=== PATIENT | female | born 1955 | race African-American/Black ===

== ENCOUNTER 2016-12-25 14:11 | Emergency (ER) | payer OTHER ==
[2016-12-25 14:22] VITALS: BP 134/75; BMI 35.7
--- NOTE | 2016-12-25 14:57 | DR.GENAD ---
HPI - HPI Comment HPI Comment: Patient c/o 2 day h/o panic attacks off and on. She has recently seen her PCP, who doubled her anxiety kmeds but hey are not heilping. She had an attack yesterday while traveling and she called 911 after pulling to the side of the road. She has just experience d a 2nd panic attack , while attempting to visit her at the senior care. She c/o heart racing and l arm numbness. She denies chest pain. - Complaint/Symptoms Chief Complaint:: Pain running down left arm with heavy feeling, can't breath - Nurses notes reviewed Nurses Notes Review: Yes - Source History Provided: Patient - Mode of Arrival Mode of Arrival: Wheelchair - Timing Onset of Chief Complaint: 12/23/16 Came on: Suddenly - Duration Duration: Unknown - Severity Severity: Severe - Associated Signs and Symptoms Associated Signs and Symptoms: sweaty palms, facial flushing and heart racing. 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, Other - Family History History of Family Medical Conditions: Yes Family Medical History: Diabetes Mellitus, Hypertension - Social History Does patient currently use any type of tobacco product: Yes Have you used tobacco products in the last 12 months: Yes Type of Tobacco Use: Cigarettes How many years tobacco product used: 45 Does any household member use tobacco: No Alcohol Use: None, Occasionally Do you use any recreational Drugs:: No Lives With: Alone Lives Where: Home - infectious screening In the last 2 months have you had wt loss of >10#?: NO Have you had fever, night sweats or hemotysis?: No Have you traveled outside the country in the last 6 months?: No Isolation: Standard ROS - Review of Systems Constitutional: No Symptoms Reported Respiratoy: Non-Productive Cough, Short of Breath Cardiovascular: Palpitations Gastrointestinal/Abdominal: No Symptoms Reported Genitourinary: No Symptoms Reported Neurological: Paresthesia, Tingling Musculoskeletal: No Symptoms Reported Integumentary: No Symptoms Reported Endocrine: No Symptoms Reported Psychiatric: Anxiety, Depression All Other Systems: Reviewed and Negative PE - Vital Signs Vitals: Temperature 98.5 F Pulse Rate 58 Respiratory Rate 22 Blood Pressure [Left Arm] 154/80 Blood Pressure [Right Arm] 157/90 Blood Pressure 134/75 O2 Sat by Pulse Oximetry 97 - General Limitations: No Limitations General Appearance: Alert, Lethargic - Head Head Exam: Normal Inspection - Neck Neck Exam: Normal Inspection, Full ROM, Trachea Midline - Chest Chest Inspection: Normal Inspection, Symmetric Chest Wall Rise - Respiratory Respiratory Exam: Normal Lung Sounds Bilat Respiratory Exam: Bilateral Clear to Auscultation - Cardiovascular Cardiovascular Exam: Regular Rate, Normal Rhythm, Normal Heart Sounds - Abdominal Exam Abdominal Exam: Normal Inspection, Normal Bowel Sounds - Extremities Extremities Exam: Normal Inspection, Full ROM - Back Back Exam: Normal Inspection - Neurologic Neurological Exam: Alert, Oriented X3, CN II-XII Intact - Psychiatric Psychiatric Exam: Agitated, Anxious - Skin Skin Exam: Warm, Dry, Intact, Normal Color MDM - Differential Diagnosis Differential Diagnosis: panic attack, chest pain, hyperthyroidism Course - Treatment Treatment: ativan - Reevaluation 1st: Improved - Education/Counseling Education/Counseling: Patient Educated On: Treatment, Diagnosis, Prognosis, Needs for Follow Up ROR - Labs Reviewed Laboratory Results Reviewed?: No Result Diagrams: 12/25/16 15:59 12/25/16 15:59 Laboratory: WBC 5.7 X10^3/uL (3.6-10.0) 12/25/16 15:59 RBC 4.50 X10^6/uL (3.5-5.4) 12/25/16 15:59 Hgb 13.4 g/dL (12.0-16.0) 12/25/16 15:59 Hct 39.5 % (36.0-47.0) 12/25/16 15:59 MCV 87.8 fL (80.0-100.0) 12/25/16 15:59 MCH 29.8 pg (27.0-34.0) 12/25/16 15:59 MCHC 33.9 g/dL (33.0-35.0) 12/25/16 15:59 RDW 14.6 % (11.6-16.5) 12/25/16 15:59 Plt Count 216 X10^3/uL (150.0-450.0) 12/25/16 15:59 MPV 7.9 fL (7.4-11.0) 12/25/16 15:59 Neut % 64.9 % (42.0-75.0) 12/25/16 15:59 Lymph % 24.4 % (21.0-51.0) 12/25/16 15:59 [place] % 9.9 % (0.0-13.0) 12/25/16 15:59 Eos % 0.5 % (0.9-2.9) L 12/25/16 15:59 Baso % 0.3 % (0.2-1.0) 12/25/16 15:59 Neut # 3.7 x10^3/uL (2.2-4.8) 12/25/16 15:59 Lymph # 1.4 X10^3/uL (1.3-2.9) 12/25/16 15:59 [place] # 0.6 x10^3/uL (0.3-0.8) 12/25/16 15:59 Eos # 0.0 x10^3/uL (0.0-0.2) 12/25/16 15:59 Baso # 0.0 X10^3/uL (0.0-0.1) 12/25/16 15:59 Absolute Nucleated RBC 0.1 /100WBC 12/25/16 15:59 Sodium 143 mmol/L (136-145) 12/25/16 15:59 Corrected Sodium TNP 12/25/16 15:59 Potassium 3.2 mmol/L (3.5-5.1) L 12/25/16 15:59 Chloride 106 mmol/L (98-107) 12/25/16 15:59 Carbon Dioxide 31.3 mmol/L (21-32) 12/25/16 15:59 BUN 15 mg/dL (7-18) 12/25/16 15:59 Creatinine 0.92 mg/dL (0.55-1.02) 12/25/16 15:59 Est GFR (MDRD) Af Amer > 60 (>60) 12/25/16 15:59 Est GFR (MDRD) Non-Af > 60 (>60) 12/25/16 15:59 Glucose 100 mg/dL (65-99) H 12/25/16 15:59 Calcium 9.2 mg/dL (8.5-10.1) 12/25/16 15:59 Corrected Calcium TNP 12/25/16 15:59 Total Bilirubin 0.40 mg/dL (0.2-1.0) 12/25/16 15:59 AST 20 Units/L (15-37) 12/25/16 15:59 ALT 25 Units/L (12-78) 12/25/16 15:59 Alkaline Phosphatase 80 Units/L (46-116) 12/25/16 15:59 Creatine Kinase 80 Units/L (26-192) 12/25/16 15:59 CK-MB (CK-2) < 1.0 ng/mL (0-4.0) 12/25/16 15:59 CK/CKMB % Calc 1.3 % (<4) 12/25/16 15:59 Troponin I 0.03 ng/mL (0-1.5) 12/25/16 15:59 Total Protein 8.1 g/dL (6.4-8.2) 12/25/16 15:59 Albumin 3.5 g/dL (3.4-5.0) 12/25/16 15:59 Globulin 4.6 g/dL (2.5-4.5) H 12/25/16 15:59 Albumin/Globulin Ratio 0.8 Ratio (1.1-2.1) L 12/25/16 15:59 - Diagnosis Discharge Problem: Heart palpitations, Panic attack, Hypokalemia - Discharge Plan Disposition: 01 HOME, SELF-CARE Condition: Stable - Follow ups/Referrals Follow ups/Referrals: KATE TONEY [Primary Care Provider] - 3 days - Instructions Instructions: Generalized Anxiety Disorder, Panic Attacks, [id number], Panic Attacks, Hypokalemia
[2016-12-25] MEDS ORDERED: ATIVAN INJ 2 MG VIAL IM ONE (15:15)
[2016-12-25] MEDS ORDERED: ATIVAN INJ 2 MG VIAL ONE (15:28)
[2016-12-25 16:07] LABS: BASOPHILS % (AUTO) 0.3 % (0.2-1.0); EOSINOPHILS % (AUTO) 0.5 % (0.9-2.9); HEMATOCRIT 39.5 % (36.0-47.0); HEMOGLOBIN 13.4 g/dL (12.0-16.0); LYMPHOCYTES # (AUTO) 1.4 X10^3/uL (1.3-2.9); LYMPHOCYTES % (AUTO) 24.4 % (21.0-51.0); MEAN CORPUSCULAR HEMOGLOBIN 29.8 pg (27.0-34.0); MEAN CORPUSCULAR HGB CONC 33.9 g/dL (33.0-35.0); MEAN CORPUSCULAR VOLUME 87.8 fL (80.0-100.0); MEAN PLATELET VOLUME 7.9 fL (7.4-11.0); MONOCYTES # (AUTO) 0.6 x10^3/uL (0.3-0.8); MONOCYTES % (AUTO) 9.9 % (0.0-13.0); NEUTROPHILS # (AUTO) 3.7 x10^3/uL (2.2-4.8); NEUTROPHILS % (AUTO) 64.9 % (42.0-75.0); PLATELET COUNT 216 X10^3/uL (150.0-450.0); RED CELL DISTRIBUTION WIDTH 14.6 % (11.6-16.5); WHITE BLOOD COUNT 5.7 X10^3/uL (3.6-10.0)
[2016-12-25 16:24] LABS: BLOOD UREA NITROGEN 15 mg/dL (7-18); CALCIUM 9.2 mg/dL (8.5-10.1); CARBON DIOXIDE 31.3 mmol/L (21-32); CHLORIDE 106 mmol/L (98-107); CREATININE 0.92 mg/dL (0.55-1.02); GLUCOSE 100 mg/dL (65-99); SODIUM 143 mmol/L (136-145); TROPONIN I 0.03 ng/mL (0-1.5); eGFR BLACK RACES > 60 (>60); eGFR NON BLACK RACES > 60 (>60)
[2016-12-25 16:28] LABS: ALANINE AMINOTRANSFERASE 25 Units/L (12-78); ALBUMIN 3.5 g/dL (3.4-5.0); ALKALINE PHOSPHATASE 80 Units/L (46-116); ASPARTATE AMINO TRANSFERASE 20 Units/L (15-37); CKMB % 1.3 % (<4); CREATINE KINASE 80 Units/L (26-192); CREATINE KINASE MB < 1.0 ng/mL (0-4.0); TOTAL PROTEIN 8.1 g/dL (6.4-8.2)
[2016-12-25] MEDS ORDERED: K-DUR TAB 20 MEQ PO ONE ×2 (16:44→16:50)
== END 2016-12-25 17:03 | disposition home or self-care (01) ==
LOC: ER 14:36
DX: R00.2 Palpitations (principal); F41.0 Panic disorder [episodic paroxysmal anxiety]; E87.6 Hypokalemia
CPT/HCPCS: 36415; 80053; 82550; 82553; 84484; 85025; 93005; 93010; 96372; 99282; 99283; J2060

== ENCOUNTER 2017-07-17 11:23 | Emergency (ER) | payer OTHER ==
[2017-07-17 11:28] VITALS: BP 161/79; BMI 34.9
--- NOTE | 2017-07-17 15:22 | DR.GENAD ---
HPI - PCP Primary Care Physician: Eri - Complaint/Symptoms Chief Complaint Doctors Comments: Patient was seen by her pcp in [place] last week. X Rays taken of cervical spine and left elbow. Has not followed up on results. Pain same as it was one week ago. Admits to arthritis of right knee. Chief Complaint:: "For about a month now my left arm has been hurting and is very weak. I didn't do anything to it, I just woke up with it like that. I had an xray done but they haven't told me the results yet. 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, Other - Family History History of Family Medical Conditions: Yes Family Medical History: Diabetes Mellitus, Hypertension - Social History Does patient currently use any type of tobacco product: No Have you used tobacco products in the last 12 months: No Type of Tobacco Use: None Does any household member use tobacco: No Alcohol Use: None Do you use any recreational Drugs:: No Lives With: Family Lives Where: Home - infectious screening In the last 2 months have you had wt loss of >10#?: NO Have you had fever, night sweats or hemotysis?: No Have you traveled outside the country in the last 6 months?: No Isolation: Standard ROS - Review of Systems Eyes: No Symptoms Reported ENTM: No Symptoms Reported Respiratoy: No Symptoms Reported Cardiovascular: No Symptoms Reported Gastrointestinal/Abdominal: No Symptoms Reported Genitourinary: No Symptoms Reported Neurological: No Symptoms Reported Musculoskeletal: No Symptoms Reported Integumentary: No Symptoms Reported Hematologic/Lymphatic: No Symptoms Reported Endocrine: No Symptoms Reported Psychiatric: No Symptoms Reported All Other Systems: Reviewed and Negative PE - Vital Signs Vitals: Temperature 98.8 F Pulse Rate 73 Respiratory Rate 18 Blood Pressure [Left Arm] 154/80 Blood Pressure [Right Arm] 157/90 Blood Pressure 161/79 O2 Sat by Pulse Oximetry 97 - General Limitations: No Limitations General Appearance: Alert, In No Apparent Distress - Head Head Exam: Normal Inspection, Atraumatic - Eyes Eye exam: Normal Appearance, PERRL, EOMI - ENT ENT Exam: Normal Exam External Ear Exam: Normal External Inspection TM/Canal Exam: Bilateral Normal Nose Exam: Normal Nose Exam Mouth Exam: Normal Inspection Throat Exam: Normal Inspection - Neck Neck Exam: Normal Inspection, Full ROM - Chest Chest Inspection: Normal Inspection - Respiratory Respiratory Exam: Normal Lung Sounds Bilat Respiratory Exam: Bilateral Clear to Auscultation - Cardiovascular Cardiovascular Exam: Regular Rate, Normal Rhythm - Abdominal Exam Abdominal Exam: Normal Inspection, Normal Bowel Sounds Abdominal Tenderness: negative: RUQ, RLQ, LUQ, LLQ, Epigastrium, Suprapubic, Diffuse, Mild, Moderate, Severe, Other - Extremities Extremities Exam: Tenderness (to ROM) - Back Back Exam: Normal Inspection, Full ROM - Neurologic Neurological Exam: Alert, Oriented X3, CN II-XII Intact - Psychiatric Psychiatric Exam: Normal Affect - Skin Skin Exam: Warm, Dry, Normal Color Course - Consultation Called: 18:30 (Dr Ortiz recommended aspiration of joint f/u next week. splint) - Education/Counseling Educated On: Treatment, Diagnosis, Needs for Follow Up ROR - Labs Reviewed Result Diagrams: 07/17/17 16:20 07/17/17 16:20 Laboratory: WBC 7.5 X10^3/uL (3.6-10.0) 07/17/17 16:20 RBC 4.73 X10^6/uL (3.5-5.4) 07/17/17 16:20 Hgb 14.1 g/dL (12.0-16.0) 07/17/17 16:20 Hct 41.4 % (36.0-47.0) 07/17/17 16:20 MCV 87.5 fL (80.0-100.0) 07/17/17 16:20 MCH 29.8 pg (27.0-34.0) 07/17/17 16:20 MCHC 34.0 g/dL (33.0-35.0) 07/17/17 16:20 RDW 15.2 % (11.6-16.5) 07/17/17 16:20 Plt Count 219 X10^3/uL (150.0-450.0) 07/17/17 16:20 MPV 8.3 fL (7.4-11.0) 07/17/17 16:20 Neut % 64.8 % (42.0-75.0) 07/17/17 16:20 Lymph % 24.7 % (21.0-51.0) 07/17/17 16:20 [place] % 8.9 % (0.0-13.0) 07/17/17 16:20 Eos % 1.4 % (0.9-2.9) 07/17/17 16:20 Baso % 0.2 % (0.2-1.0) 07/17/17 16:20 Neut # 4.9 x10^3/uL (2.2-4.8) H 07/17/17 16:20 Lymph # 1.9 X10^3/uL (1.3-2.9) 07/17/17 16:20 [place] # 0.7 x10^3/uL (0.3-0.8) 07/17/17 16:20 Eos # 0.1 x10^3/uL (0.0-0.2) 07/17/17 16:20 Baso # 0.0 X10^3/uL (0.0-0.1) 07/17/17 16:20 Absolute Nucleated RBC 0.0 /100WBC 07/17/17 16:20 Sodium 142 mmol/L (136-145) 07/17/17 16:20 Corrected Sodium TNP 07/17/17 16:20 Potassium 4.2 mmol/L (3.5-5.1) 07/17/17 16:20 Chloride 105 mmol/L (98-107) 07/17/17 16:20 Carbon Dioxide 27.8 mmol/L (21-32) 07/17/17 16:20 BUN 13 mg/dL (7-18) 07/17/17 16:20 Creatinine 0.87 mg/dL (0.55-1.02) 07/17/17 16:20 Est GFR (MDRD) Af Amer > 60 (>60) 07/17/17 16:20 Est GFR (MDRD) Non-Af > 60 (>60) 07/17/17 16:20 Glucose 109 mg/dL (65-99) H 07/17/17 16:20 Calcium 9.7 mg/dL (8.5-10.1) 07/17/17 16:20 C-Reactive Protein 7.10 mg/L (0-3.0) H 07/17/17 16:20 Procedures - Laceration/Wound Repair Elbow Anesthesia: 1% Lidocaine (5ml attempted neeld aspiration of left elbow joint dry tap) - Diagnosis Discharge Problem: Effusion, left elbow - Discharge Plan Condition: Stable - Follow ups/Referrals Follow ups/Referrals: KATE TONEY [Primary Care Provider] - 3 days - Instructions
[2017-07-17] MEDS ORDERED: TORADOL 60 MG VIAL IM ONE (15:30)
[2017-07-17] MEDS ORDERED: TORADOL 60 MG VIAL ONE (15:39)
--- NOTE | 2017-07-17 15:55 | RAD ---
HISTORY: Pain. No history of trauma. Study: Left elbow: Two views Comparison: None Findings: Minimal spurring is noted from the coronoid process. Early enthesopathy is noted at the triceps tend on insertion. There appears be a moderate-sized joint effusion. There is suggestion of loss of juani ical detail involving the posterior aspect of the capitulum. This is inconclusive but best suggested on the lateral radiograph. Clinical correlation is recommended to exclude etiologies for the joint effusion such as osteomyelitis or septic joint. Well corticated bony densities extend from the later al epicondyle, possibly from previous trauma or epicondylitis. IMPRESSION: 1. There appears to be a moderate-sized joint effusion. 2. Questionable loss of cortex involving the posterior capitulum. Correlation with clinical finding s is recommended to see if the joint effusion and possible loss of bony cortex could be due to a sept ic joint or osteomyelitis. Reported By:
--- NOTE | 2017-07-17 15:57 | RAD ---
HISTORY: Neck pain. No history of trauma. Study: AP and lateral cervical spine Comparison: None Findings: There is loss of normal cervical lordosis. Mild posterior spurring is noted at C6/C7 with mild-to-mo derate at C4/C5, C5/C6 and C6/C7. The prevertebral soft tissues are normal. The pre odontoid space is normal. The posterior elements are intact. Minimal facet and uncovertebral joint arthropathy is noted. The lateral masses C1 are minimally asymmetric with respect to the lateral masses C2 and the odontoid process. IMPRESSION: 1. Cervical spondylosis as described above. 2. Loss of normal cervical lordosis which may be seen in normal individuals, be positional or second travon to muscle spasm. 3. No acute bony abnormalities are identified. Reported By:
[2017-07-17 16:33] LABS: BASOPHILS % (AUTO) 0.2 % (0.2-1.0); EOSINOPHILS # (AUTO) 0.1 x10^3/uL (0.0-0.2); EOSINOPHILS % (AUTO) 1.4 % (0.9-2.9); HEMATOCRIT 41.4 % (36.0-47.0); HEMOGLOBIN 14.1 g/dL (12.0-16.0); LYMPHOCYTES # (AUTO) 1.9 X10^3/uL (1.3-2.9); LYMPHOCYTES % (AUTO) 24.7 % (21.0-51.0); MEAN CORPUSCULAR HEMOGLOBIN 29.8 pg (27.0-34.0); MEAN CORPUSCULAR VOLUME 87.5 fL (80.0-100.0); MEAN PLATELET VOLUME 8.3 fL (7.4-11.0); MONOCYTES # (AUTO) 0.7 x10^3/uL (0.3-0.8); MONOCYTES % (AUTO) 8.9 % (0.0-13.0); NEUTROPHILS # (AUTO) 4.9 x10^3/uL (2.2-4.8); NEUTROPHILS % (AUTO) 64.8 % (42.0-75.0); PLATELET COUNT 219 X10^3/uL (150.0-450.0); RED BLOOD COUNT 4.73 X10^6/uL (3.5-5.4); RED CELL DISTRIBUTION WIDTH 15.2 % (11.6-16.5); WHITE BLOOD COUNT 7.5 X10^3/uL (3.6-10.0)
[2017-07-17 16:38] LABS: BLOOD UREA NITROGEN 13 mg/dL (7-18); CALCIUM 9.7 mg/dL (8.5-10.1); CARBON DIOXIDE 27.8 mmol/L (21-32); CHLORIDE 105 mmol/L (98-107); CREATININE 0.87 mg/dL (0.55-1.02); SODIUM 142 mmol/L (136-145); eGFR BLACK RACES > 60 (>60); eGFR NON BLACK RACES > 60 (>60)
--- NOTE | 2017-07-17 18:51 | CT ---
CT left elbow without contrast Indication: Left elbow pain. No history of trauma. Inability to straighten the left elbow. Comparison: 07/17/2017. Technique: Helical images through the left elbow without contrast. Coronal and sagittal reformats pro vided. Findings: Radio capitellar joint alignment is intact. Trochlear joint degenerative change with small marginal osteophytes noted. The common extensor tendon shows enthesopathy at the origin. There is lar ge elbow joint effusion with displacement of the fat pads. There is no marked stranding about the elb ow. Triceps, biceps and brachialis tendons appear relatively intact, with the limits of CT. Neurovasc ular structures appear normal. No aggressive periosteal reaction or cortical destruction seen. Impression: 1. No acute fracture. 2. Mild radio capitellar and trochlear degenerative changes as well as common extensor tendon origin enthesopathy. 3. Large elbow joint effusion, without specific evidence of septic arthritis. Acute infection is not completely excluded in the correct clinical setting, but this effusion may be related to inflammatory arthropathy or even crystal deposition disease. Correlate clinically. Reported By:
[2017-07-17] MEDS ORDERED: XYLOCAINE 1 % (PLAIN) ONE (19:21)
== END 2017-07-17 20:55 | disposition home or self-care (01) ==
LOC: ER 11:34
PROC: 0X9 Anatomical Regions, Upper Extremities, Drainage (ICD-10-PCS; principal; 2017-07-17)
DX: M25.422 Effusion, left elbow (principal)
CPT/HCPCS: 36415; 72040; 73070; 73200; 80048; 85025; 86140; 96372; 99283; J1885; J2001